=== PATIENT | female | born 1995 | race American Indian/Alaskan Native ===

== ENCOUNTER 2020-06-07 20:44 | Emergency (ER) | payer SELFPAY ==
[2020-06-07] MEDS ORDERED: Sodium Chloride 0.9% 10 ML Syringe FLUSH PRN (21:23)
[2020-06-07] MEDS ORDERED: Ketorolac 30 MG/ML SDV IVPUSH ONE (21:36)
[2020-06-07] MEDS ORDERED: Ondansetron 4 MG/2 ML SDV IVPUSH ONE (21:36)
--- NOTE | 2020-06-07 21:41 | EDM.PDOC ---
<Meron Yun V - Last Filed: 06/07/20 22:31> ED HPI GENERAL MEDICAL PROBLEM - General Chief Complaint: General Stated Complaint: HEADACHE/BACK ACHES/CHILLS/VOMITING Time Seen by Provider: 06/07/20 21:23 Source of Information: Reports: Patient, RN Notes Reviewed History Limitations: Reports: No Limitations - History of Present Illness INITIAL COMMENTS - FREE TEXT/NARRATIVE: Patient is a 24-year-old female who presents to the ED for the evaluation of multiple symptoms. Patient notes that on Thursday, she developed bilateral back pain that seem to wrap into her abdomen or groin. She states this worsened Thursday, and she noticed a fever as well, but she did not take her temperature. Patient's temperature at time of triage is 98.9 F, however she feels warmer than this. Patient is tachycardic at 137, respiratory rate of 32 breaths/min, blood pressure is 134/85, O2 sats 100% on room air. Patient is complaining of generalized body aches, headache, she denies any dysuria, frequency or urgency, or any other urinary issues. She does not seem to think she was around anyone that has had COVID-19. She denies any cough or shortness of breath. She was concerned that she may have gotten an STD from her boyfriend. She is thinking that she has some vaginal discharge that is malodorous. She has a history of chlamydia roughly 3 years ago. Patient has been utilizing Tylenol and ibuprofen for the headache, and states her last dose was 2 tablets of Tylenol and 1 tablet of ibuprofen at 3 PM today. Treatments [employer]: Reports: Acetaminophen Headache Pain Score (Numeric/FACES): 10 - Related Data Allergies Allergy/AdvReac Type Severity Reaction Status Date / Time No Known Allergies Allergy Verified 06/07/20 21:00 Home Meds: Home Meds metroNIDAZOLE [Flagyl] 500 mg PO Q12H #14 tab 06/08/20 [Rx] Past Medical History - Past Health History Medical/Surgical History: Denies Medical/Surgical History - Infectious Disease History Infectious Disease History: Reports: Other (See Below) Other Infectious Disease History: STI chlamidya Social & Family History - Family History Family Medical History: No Pertinent Family History - Tobacco Use Tobacco Use Status *Q: Never Tobacco User - Caffeine Use Caffeine Use: Reports: Soda, Tea - Recreational Drug Use Recreational Drug Use: Yes Recreational Drug Type: Reports: Marijuana/Hashish ED ROS GENERAL - Review of Systems Review Of Systems: Comprehensive ROS is negative, except as noted in HPI. ED EXAM, GENERAL - Physical Exam Exam: See Below Exam Limited By: No Limitations General Appearance: Alert, WD/WN, No Apparent Distress Respiratory/Chest: No Respiratory Distress, Lungs Clear, Normal Breath Sounds, No Accessory Muscle Use, Chest Non-Tender Cardiovascular: Normal Peripheral Pulses, Regular Rate, Rhythm, No Murmur Peripheral Pulses: 2+: Radial (L), Radial (R) Extremities: Normal Inspection, Normal Capillary Refill Neurological: Alert, Oriented, Normal Cognition, No Motor/Sensory Deficits Psychiatric: Normal Affect, Normal Mood Skin Exam: Warm, Dry, Intact, Normal Color, No Rash Course - Re-Assessments/Exams Free Text/Narrative Re-Assessment/Exam: 06/07/20 21:40 Patient presents to the ED for the evaluation of her multiple symptoms. We will get some labs, and check her urine to assess for possible pyelonephritis. As she states the pain started in her back initially. She is febrile at this time. She has been given a dose of Toradol and Zofran for ongoing nausea and headache/body pain management. 06/07/20 22:31 Patient care will be transferred to Dr. Jackson at this time, as it is nearing the end of my shift. Departure - Departure Disposition: Home, Self-Care 01 Clinical Impression: Bacterial vaginosis, Cephalgia, Fever - Discharge Information Referrals: PCP,None [Primary Care Provider] - Forms: ED Department Discharge Additional Instructions: Return to the emergency room with any questions problems or worsening symptoms. Return with worsening headache and/or fevers. You have been started on a antibiotic called Flagyl, or metronidazole, this is for the vaginal infection. Take 1 twice daily until all gone. Push lots of fluids. Follow-up in the hospital clinic early this next week for recheck. [phone] Sepsis Event Note (ED) - Evaluation Sepsis Screening Result: Possible Sepsis Risk <Mic Jackson - Last Filed: 06/08/20 03:17> Course - Vital Signs Last Recorded V/S: Last Vital Signs Temp 36.1 C 06/08/20 02:01 Pulse 88 06/08/20 02:01 Resp 20 06/08/20 02:01 BP 115/63 06/08/20 02:01 Pulse Ox 96 06/08/20 02:01 - Orders/Labs/Meds Orders: Active Orders 24 hr Category Date Time Status Peripheral IV Care [RC] . DIRECTED Care 06/07/20 21:24 Active CORONAVIRUS COVID-19 PCR PHL Stat Lab 06/07/20 23:26 Received CULTURE BLOOD [BC] Stat Lab 06/08/20 01:25 Received CULTURE BLOOD [BC] Stat Lab 06/08/20 01:34 Received Sodium Chloride 0.9% [Saline Flush] Med 06/07/20 21:23 Active 10 ml FLUSH ASDIRECTED PRN Blood Culture x2 Reflex Set [OM.PC] Stat Oth 06/08/20 00:42 Ordered Isolation [COMM] Routine Oth 06/07/20 21:42 Ordered Peripheral IV Insertion Adult [OM.PC] Routine Oth 06/07/20 21:23 Ordered Medication Orders Sodium Chloride (Saline Flush) 10 ml FLUSH ASDIRECTED PRN PRN Reason: Keep Vein Open Last Admin: 06/07/20 22:13 Dose: 10 ml Documented by: WESLEY Labs: Laboratory Tests 06/07/20 06/07/20 06/07/20 Range/Units 22:04 22:04 22:11 WBC 27.94 H (3.98-10.04) K/mm3 RBC 4.90 (3.98-5.22) M/mm3 Hgb 14.1 (11.2-15.7) gm/dl Hct 40.5 (34.1-44.9) % MCV 82.7 (79.4-94.8) fl MCH 28.8 (25.6-32.2) pg MCHC 34.8 (32.2-35.5) g/dl RDW Std Deviation 41.8 (36.4-46.3) fL Plt Count 317 (182-369) K/mm3 MPV 9.2 L (9.4-12.3) fl Neut % (Auto) Cancelled Lymph % (Auto) Cancelled Placer % (Auto) Cancelled Eos % (Auto) Cancelled Baso % (Auto) Cancelled Neut # (Auto) Cancelled Lymph # (Auto) Cancelled Placer # (Auto) Cancelled Eos # (Auto) Cancelled Baso # (Auto) Cancelled Neutrophils % (Manual) 85 H (40-60) % Band Neutrophils % 5 (0-10) % Lymphocytes % (Manual) 4 L (20-40) % Atypical Lymphs % 0 % Monocytes % (Manual) 6 (2-10) % Eosinophils % (Manual) 0 L (0.7-5.8) % Basophils % (Manual) 0 L (0.1-1.2) Manual Slide Review Cancelled Platelet Estimate Adequate RBC Morph Comment Normal Sodium (136-145) mEq/L Potassium (3.5-5.1) mEq/L Chloride (98-107) mEq/L Carbon Dioxide (21-32) mEq/L Anion Gap (5-15) BUN (7-18) mg/dL Creatinine (0.55-1.02) mg/dL Est Cr Clr Drug Dosing Estimated GFR (MDRD) (>60) mL/min BUN/Creatinine Ratio (14-18) Glucose (74-106) mg/dL Lactic Acid (0.4-2.0) mmol/L Calcium (8.5-10.1) mg/dL Total Bilirubin (0.2-1.0) mg/dL AST (15-37) U/L ALT (14-59) U/L Alkaline Phosphatase (46-116) U/L C-Reactive Protein (<1.0) mg/dL Total Protein (6.4-8.2) g/dl Albumin (3.4-5.0) g/dl Globulin gm/dL Albumin/Globulin Ratio (1-2) Urine Color Vilma H (Yellow) Urine Appearance Slt cloudy H (Clear) Urine pH 6.0 (5.0-8.0) Ur Specific [place] 1.020 (1.005-1.030) Urine Protein 3+ H (Negative) Urine Glucose (UA) Negative (Negative) Urine Ketones 4+ H (Negative) Urine Occult Blood 1+ H (Negative) Urine Nitrite Negative (Negative) Urine Bilirubin 2+ H (Negative) Urine Urobilinogen 2.0 H (0.2-1.0) Ur Leukocyte Esterase Trace H (Negative) Urine RBC 0-5 (0-5) /hpf Urine WBC 5-10 H (0-5) /hpf Ur Squamous Epith Cells 0-5 (0-5) /hpf Urine Bacteria Few (FEW) /hpf Urine Mucus Moderate H (FEW) /hpf Urine HCG, Qual (NEGATIVE) C trachomatis DNA (PCR) Not detected N gonorrhoeae DNA (PCR) Not detected 06/07/20 06/07/20 06/08/20 Range/Units 22:11 23:36 01:34 WBC (3.98-10.04) K/mm3 RBC (3.98-5.22) M/mm3 Hgb (11.2-15.7) gm/dl Hct (34.1-44.9) % MCV (79.4-94.8) fl MCH (25.6-32.2) pg MCHC (32.2-35.5) g/dl RDW Std Deviation (36.4-46.3) fL Plt Count (182-369) K/mm3 MPV (9.4-12.3) fl Neut % (Auto) Lymph % (Auto) Placer % (Auto) Eos % (Auto) Baso % (Auto) Neut # (Auto) Lymph # (Auto) Placer # (Auto) Eos # (Auto) Baso # (Auto) Neutrophils % (Manual) (40-60) % Band Neutrophils % (0-10) % Lymphocytes % (Manual) (20-40) % Atypical Lymphs % % Monocytes % (Manual) (2-10) % Eosinophils % (Manual) (0.7-5.8) % Basophils % (Manual) (0.1-1.2) Manual Slide Review Platelet Estimate RBC Morph Comment Sodium 132 L (136-145) mEq/L Potassium 3.2 L (3.5-5.1) mEq/L Chloride 96 L (98-107) mEq/L Carbon Dioxide 18 L (21-32) mEq/L Anion Gap 21.2 H (5-15) BUN 9 (7-18) mg/dL Creatinine 1.0 (0.55-1.02) mg/dL Est Cr Clr Drug Dosing TNP Estimated GFR (MDRD) > 60 (>60) mL/min BUN/Creatinine Ratio 9.0 L (14-18) Glucose 128 H (74-106) mg/dL Lactic Acid 0.9 (0.4-2.0) mmol/L Calcium 8.7 (8.5-10.1) mg/dL Total Bilirubin 1.0 (0.2-1.0) mg/dL AST 17 (15-37) U/L ALT 44 (14-59) U/L Alkaline Phosphatase 163 H (46-116) U/L C-Reactive Protein 54.1 H* (<1.0) mg/dL Total Protein 7.7 (6.4-8.2) g/dl Albumin 2.9 L (3.4-5.0) g/dl Globulin 4.8 gm/dL Albumin/Globulin Ratio 0.6 L (1-2) Urine Color (Yellow) Urine Appearance (Clear) Urine pH (5.0-8.0) Ur Specific [place] (1.005-1.030) Urine Protein (Negative) Urine Glucose (UA) (Negative) Urine Ketones (Negative) Urine Occult Blood (Negative) Urine Nitrite (Negative) Urine Bilirubin (Negative) Urine Urobilinogen (0.2-1.0) Ur Leukocyte Esterase (Negative) Urine RBC (0-5) /hpf Urine WBC (0-5) /hpf Ur Squamous Epith Cells (0-5) /hpf Urine Bacteria (FEW) /hpf Urine Mucus (FEW) /hpf Urine HCG, Qual Negative (NEGATIVE) C trachomatis DNA (PCR) N gonorrhoeae DNA (PCR) Meds: Medications Generic Name Dose Route Start Last Admin Trade Name Freq PRN Reason Stop Dose Admin Sodium Chloride 10 ml 06/07/20 21:23 06/07/20 22:13 Saline Flush FLUSH 10 ml ASDIRECTED PRN Administration Keep Vein Open Discontinued Medications Generic Name Dose Route Start Last Admin Trade Name Freq PRN Reason Stop Dose Admin Sodium Chloride 1,000 mls @ 999 mls/hr 06/07/20 22:25 06/07/20 22:30 Normal Saline IV 06/07/20 23:25 999 mls/hr ONETIME ONE Administration Sodium Chloride 1,000 mls @ 999 mls/hr 06/08/20 00:16 06/08/20 00:21 Normal Saline IV 06/08/20 01:16 999 mls/hr ONETIME ONE Administration Lactated Ringer's 1,000 mls @ 999 mls/hr 06/08/20 01:51 06/08/20 01:57 Ringers, Lactated IV 06/08/20 02:51 999 mls/hr NOW STA Administration Ketorolac Tromethamine 30 mg 06/07/20 21:36 06/07/20 22:13 Toradol IVPUSH 06/07/20 21:37 30 mg ONETIME ONE Administration Ondansetron HCl 4 mg 06/07/20 21:36 06/07/20 22:13 Zofran IVPUSH 06/07/20 21:37 4 mg ONETIME ONE Administration - Re-Assessments/Exams Free Text/Narrative Re-Assessment/Exam: 06/07/20 23:18 Assumed care short time ago. I did go and evaluate the patient she is complaining mostly of headache with some nausea and this ordered appropriate labs have been ordered however I did add a vaginal SUSAN and wet mount as the patient did tell Meron that she had some malodorous discharge. My exam head neck is freely movable no evidence of nuchal rigidity with her in the sitting position in her leg straight out she can bring her chin all the way down to her chest without difficulty. She can turn her head without difficulty. Really is not complaining of any neck pain or neck rigidity. Heart regular rate rhythm without evidence of murmur gallop or rub. Lungs: Clear breath sounds bilaterally no wheezes crackles or rhonchi. Abdomen active bowel sounds soft no rebound or guarding no appreciable abdominal tenderness with palpation. Back exam is normal no CVA discomfort. 06/08/20 01:52 Doing much better at this time her white count is quite elevated 85% segs 5% bands she has had fluid her pulse is come down. She is received Zofran and Toradol headache is doing much better repeat abdominal exam is remarkable no CVA discomfort. I did discuss the uncertainty of the diagnosis with the patient and did offer LP she is considering this option at this point but right now she is leaning towards discharge. We will give 1/3 L of fluid as her pulse is still right around 100 and continue to observe. GC and chlamydia is unremarkable she is got a few clue cells noted on wet mount few fungal elements influenza is negative coronavirus is a send out. 06/08/20 03:07 Patient is at 3 L of fluid her headache is essentially gone. I still have a hard time explaining her elevated C-reactive protein in conjunction with a WBC count greater than 27,000. Did discuss the LP again with the patient and informed her no uncertain terms I really do not have any good explanation for her symptoms and the LP would certainly help make the diagnosis of she had meningitis or exclude the possibility. However, the patient would like to hold off on this. She does agree to return to the emergency room if her condition worsens. The patient could have bacterial vaginosis should be started on Flagyl 500 mg twice daily. Departure - Departure Time of Disposition: 03:12 Sepsis Event Note (ED) - Focused Exam Vital Signs: Vital Signs Temp Pulse Resp BP Pulse Ox 06/08/20 02:01 36.1 C 88 20 115/63 96 06/08/20 00:23 36.1 C 96 20 120/68 97 06/07/20 20:57 37.2 C 137 H 32 H 134/85 100 - My Orders Last 24 Hours: My Active Orders 06/08/20 00:42 Blood Culture x2 Reflex Set [OM.PC] Stat 06/08/20 01:25 CULTURE BLOOD [BC] Stat 06/08/20 01:34 CULTURE BLOOD [BC] Stat - Assessment/Plan Last 24 Hours: My Active Orders 06/08/20 00:42 Blood Culture x2 Reflex Set [OM.PC] Stat 06/08/20 01:25 CULTURE BLOOD [BC] Stat 06/08/20 01:34 CULTURE BLOOD [BC] Stat
[2020-06-07] MEDS ORDERED: Sodium Chloride 0.9% 1,000 ML IV ONE (22:25)
[2020-06-08 00:02] LABS: C. TRACHOMATIS BY PCR NOT DETECTED; N. GONORRHOEAE BY PCR NOT DETECTED
[2020-06-08] MEDS ORDERED: Sodium Chloride 0.9% 1,000 ML IV ONE (00:16)
[2020-06-08] MEDS ORDERED: Lactated Ringers 1,000 ML IV STA (01:51)
[2020-06-08] MEDS ORDERED: metroNIDAZOLE 500 MG Tab PO ONE (03:13)
== END 2020-06-08 03:34 | disposition home or self-care (01) ==
LOC: JD.ED 20:44
DX: U07.1 COVID-19 (principal); N76.0 Acute vaginitis
CPT/HCPCS: 36415; 80053; 81001; 81025; 83605; 85007; 85025; 85027; 86140; 87040; 87086; 87210; 87491; 87591; 87804; 87808; 96374; 96375; 99284; 99284-25; A9270-GY; J1885; J2405; J7030; J7120; U0002